=== PATIENT | male | born 1995 | race Caucasian/White ===

== ENCOUNTER 2021-12-25 20:11 | Emergency (ER) | payer OTHER, SELFPAY ==
--- NOTE | ~2021-12-25 | XR_ITS ---
XR ankle RT min 3V DATE: 12/25/2021 20:30 INDICATION: Right ankle pain, calcaneal pain from basketball injury TECHNIQUE: 4 views COMPARISON: None FINDINGS: No fracture or dislocation of the ankle or disruption of the ankle mortise. No periosteal r eaction or bone destruction. IMPRESSION: Negative Reviewed, dictated and finalized at location A. IMPRESSION: Negative
[2021-12-25 20:14] VITALS: BP 141/85; PULSE 86; RESP 18; TEMP 36.2; O2SAT 100
--- NOTE | 2021-12-25 20:28 | ED.LOWEXIN ---
HPI - Extremity Injury (Lower) General Chief Complaint: Extremity Injury, Lower Stated Complaint: Right ankle injury Time Seen by Provider: 12/25/21 20:18 Source: patient Mode of arrival: ambulatory Limitations: no limitations History of Present Illness HPI Narrative: This is a 26 year old male that presents to the ER for right ankle pain after an injury today. Reports he landed wrong while jumping. Reports twisting the ankle. Reports swelling and pain in the right lateral ankle and mid foot. Denies decreased ROM or numbness. Related Data Home Medications Medication Instructions Recorded Confirmed No Home Medications 12/25/21 Allergies Allergy/AdvReac Type Severity Reaction Status Date / Time No Known Allergies Allergy Verified 12/25/21 20:17 Review of Systems Review of Systems: CONSTITUTIONAL: Denies fever MUSCULOSKELETAL: Reports joint pain, and myalgia. NEUROLOGIC: Denies numbness All systems reviewed & are unremarkable except as noted in HPI and below PMFSH Past Medical History Medical History (Updated 12/25/21 @ 21:19 by Samreen Jones PA-C) No active medical problems Social History Social History (Updated 12/25/21 @ 20:31 by Samreen Jones PA-C) Smoking status: Never smoker Exam Narrative: GENERAL: Well-appearing, well-nourished, and in no acute distress. HEAD: Normocephalic, atraumatic. EYES: EOMI. EXTREMITIES: Normal range of motion. Mild edema about the right lateral malleoli. Normal DP pulses. Normal sensation SKIN: Warm, dry, no rash. NEURO: No focal deficits. Alert and oriented x3. PSYCH: Normal mood and affect Course Vital Signs Vital signs: Vital Signs Temperature 97.2 F L 12/25/21 20:14 Pulse Rate 86 12/25/21 20:14 Respiratory Rate 18 12/25/21 20:14 Blood Pressure 141/85 H 12/25/21 20:14 Pulse Oximetry 100 12/25/21 20:14 Temperature 97.2 F L 12/25/21 20:14 Pulse Rate 86 12/25/21 20:14 Respiratory Rate 18 12/25/21 20:14 Blood Pressure 141/85 H 12/25/21 20:14 Pulse Oximetry 100 12/25/21 20:14 MDM - Extremity Injury (Lower) MDM Narrative Medical decision making narrative: Patient presents to the emergency department for right ankle pain after an injury today. Patient is neurovascularly intact. Right ankle x-rays without acute osseous abnormalities. Patient was instructed on care of ankle sprain. He is to follow-up with his primary care doctor. He was given warnings to return to the ER Imaging Data Radiologist's impression: ITS Impressions Ankle X-Ray 12/25/21 20:35 IMPRESSION: Negative Critical Care Time Critical Care Time Critical Care Time: No Discharge Plan Discharge Clinical Impression: Ankle sprain and strain Patient Disposition: Home, Self-Care Condition: Stable Instructions: Ankle Sprain (ED) Additional Instructions: Return to the emergency department if you experience fever, redness and swelling of your leg, numbness, or any other symptoms that are concerning to you Wear NATHANAEL wrap and use crutches. No weight on the affected leg until able to bear weight without pain. Ice and elevate extremity. Pain medication as needed and directed. Follow up with your doctor for further care. Prescriptions: No Action No Home Medications RF: 0 Follow-up/Referrals: [facility] [place], [Primary Care Provider] - 1 Week Stand Alone Forms: Work/School Release IP
== END 2021-12-25 20:20 | disposition home or self-care (01) ==
PROVIDERS: Emergency Provider Emergency Medicine
DX: S93.401A Sprain of unspecified ligament of right ankle, initial encounter (principal); S96.911A Strain of unspecified muscle and tendon at ankle and foot level, right foot, initial encounter; X50.9XXA Other and unspecified overexertion or strenuous movements or postures, initial encounter
CPT/HCPCS: 73610; 99283